=== PATIENT | female | born 1940 | race Caucasian/White ===

== ENCOUNTER 2016-07-16 07:07 | Emergency (ER) | payer MEDICARE, MEDICAID ==
[~2016-07-16 07:07] MED LIST: ATENOLOL50 MG PO; AUGMENTIN 875-11 TAB PO; B12 HEALTH1000 MCG/1 PO; BACTRIM DS TAB1 EACH PO; CALCIUM 600 +1 EAC2 PO; COUMADIN5 M1 PO; COUMADIN5 M2 PO; COUMADIN5 MG PO; COUMADIN7.5 MG PO; LEVOTHROID100 MCG PO; LISINOPRIL10 MG PO; LISINOPRIL2.5 MG PO; MACROBID 100 M100 MG PO; METOPROLOL SUC100 M1 PO; MULTI VITAMIN1 EAC1 PO; MULTIVITAMIN1 TAB PO; ONE DAILY FOR1 EAC1 PO; PREDNISONE20 MG PO; SIMVASTATIN10 MG PO; SIMVASTATIN20 MG PO; TOPROL-XL100 MG/TAB PO; Toprol Xl PO; ULTRAM50 MG PO; VITAMIN B121000 MCG PO; VITAMIN D PO; VITAMIN D1000 UNI1 PO; WARFARIN SODIUM5 MG PO
== END 2016-07-16 08:00 ==
LOC: EDMED 07:07
DX: S61.213A Laceration without foreign body of left middle finger without damage to nail, initial encounter (principal); I10 Essential (primary) hypertension; J45.909 Unspecified asthma, uncomplicated; Z86.73 Personal history of transient ischemic attack (TIA), and cerebral infarction without residual deficits; Z23 Encounter for immunization; Z90.89 Acquired absence of other organs; W27.2XXA Contact with scissors, initial encounter